=== PATIENT | male | born 1945 | race Caucasian/White ===

== ENCOUNTER 2017-12-31 17:20 | Outpatient (REF) | payer MEDICARE, MEDICAID, SELFPAY ==
--- NOTE | 2017-12-31 16:45 | SKI_PTH ---
PATIENT: Yael Messer LOC: [facility] U#:[id number] AGE/SX: 72/M ROOM: RE12/31/[address]: Harpreet Mcintyre : 1945 BED: DIS: 12/31/2017 SPEC #: [id number] RECD: 01/01/18 12:31 STATUS: ZAHEER REQ #: [id number] PATRICIA: 12/31/17 16:[address]: Harpreet Mcintyre DEPT: Surgical Specimen RECD BY: Yamile Beatty ENTERED: 01/01/18 12:33 SP TYPE: FRANCISCO OT DR: Calixto Huddleston Tissues: 1 - SKIN BIOPSY(SHAVE/PUNCH) Procedures: SKIN LEVEL 4 Comments: [id number]
== END 2017-12-31 17:40 ==
LOC: NCHCN 17:20
PROVIDERS: Visit Provider Family Medicine
DX: L57.0 Actinic keratosis (principal)
CPT/HCPCS: 88305

== ENCOUNTER 2019-01-13 11:03 | Outpatient (REF) | payer MEDICARE, MEDICAID, SELFPAY ==
[2019-01-13 22:00] LABS: Abs Immature Grans 0.02 k/cumm (0.0-0.09); Absolute Basophil Count 0.04 k/cumm (0.0-0.2); Absolute Eosinophil Count 0.17 k/cumm (0.0-0.7); Absolute Lymphocyte Count 2.23 k/cumm (1.2-3.4); Absolute Monocyte Count 0.99 k/cumm (0.11-0.7); Absolute Neutrophil Count 3.74 k/cumm (1.2-6.7); Basophils % 0.6; Eosinophils % 2.4; HCT 41.5 % (40.0-50.0); HGB 14.2 g/dL (13.5-17.5); Immature Grans % 0.3; Mean Corp. HGB Concentration 34.2 g/dL (32.0-36.0); Mean Corpuscular Hemoglobin 30.3 pg (27.0-33.0); Mean Corpuscular Volume 88.5 fL (80-95); Mean Platelet Volume 10.2 fL (8.0-11.0); Monocytes % 13.8; Neutrophils % 51.9; Platelet Count 540 x1000/uL (130-400); RBC 4.69 m/cumm (4.50-6.00); White Blood Cell Count 7.19 k/cumm (4.4-10.8)
[2019-01-13 22:07] LABS: Anion Gap 10.5 mmol/L (3-11); BUN 14 mg/dL (7-18); CO2 25.5 mmol/L (21.0-32.0); CREATININE 0.93 mg/dL (0.70-1.30); Calcium 9.2 mg/dL (8.5-10.1); Calculated LDL 143 mg/dL; Chloride 105 mmol/L (98-107); Cholesterol 202 mg/dL (50-200); Glucose 103 mg/dL (70-100); HDL Cholesterol 33 mg/dL (40-60); Potassium 4.2 mmol/L (3.5-5.1); Sodium 141 mmol/L (136-145); Triglyceride 130 mg/dL (30-150)
[2019-01-15 12:17] LABS: PSA, Screening 3.6 ng/ml (0-6.5)
== END 2019-01-13 11:23 ==
LOC: NCHCN 11:03
PROVIDERS: PCP Family Medicine; Visit Provider Family Medicine
DX: E78.5 Hyperlipidemia, unspecified (principal); R06.2 Wheezing; F17.290 Nicotine dependence, other tobacco product, uncomplicated; Z12.5 Encounter for screening for malignant neoplasm of prostate
CPT/HCPCS: 80048; 80061; 84153; 85025

== ENCOUNTER 2021-01-24 14:51 | Outpatient (REF) | payer MEDICARE, MEDICAID, SELFPAY ==
[2021-01-24 20:40] LABS: Abs Immature Grans 0.02 10^3/uL (0.0-0.06); Absolute Basophil Count 0.04 10^3/uL (0.0-0.2); Absolute Eosinophil Count 0.06 10^3/uL (0.0-0.7); Absolute Lymphocyte Count 1.69 10^3/uL (1.2-3.4); Absolute Monocyte Count 0.92 10^3/uL (0.1-0.8); Absolute Neutrophil Count 5.92 10^3/uL (1.2-6.7); Basophils % 0.5; Eosinophils % 0.7; HCT 44.8 % (40.0-50.0); HGB 15.5 g/dL (13.5-17.5); Immature Grans % 0.2; Lymphocytes % 19.5; MCH 30.6 pg (27.0-33.0); MCHC 34.6 % (32.0-36.0); MCV 88.5 fL (80-95); MPV 10.5 fL (8.0-11.0); Monocytes % 10.6; Neutrophils % 68.5; Nucleated RBC 0 %; Platelet Count 406 10^3/uL (130-400); RBC 5.06 10^6/uL (4.36-5.78); RDW 11.9 % (11.8-14.1); RDW-SD 38.8 fL; WBC 8.65 10^3/uL (4.4-10.8)
[2021-01-24 21:33] LABS: ALT 23 U/L (16-63); AST 16 U/L (15-37); Alkaline Phosphatase 81 U/L (46-116); Anion Gap 8.5 mmol/L (3-11); BUN 12 mg/dL (7-18); Bilirubin, Total 0.5 mg/dL (0.2-1.0); CO2 28.5 mmol/L (21.0-32.0); Calculated LDL 105 mg/dL (<100); Chloride 104 mmol/L (98-107); Cholesterol 176 mg/dL (<200); Glucose 87 mg/dL (74-106); HDL Cholesterol 38 mg/dL (40-60); Potassium 4.5 mmol/L (3.5-5.1); Sodium 141 mmol/L (136-145); TSH (W/Ref FT4) 2.81 uIU/mL (0.36-3.74); Total Protein 7.3 g/dL (6.4-8.2); Triglyceride 165 mg/dL (<150); Vitamin B12 191 pg/mL (193-986)
[2021-01-24 22:18] LABS: Lipase 162 U/L (73-393)
[2021-01-25 18:08] LABS: Folate >24.0 ng/mL (See Note)
[2021-01-26 09:56] LABS: Hepatitis C Ab w Rflx HCV PCR Negative (Negative)
== END 2021-01-24 14:52 | disposition home or self-care (01) ==
LOC: NCHCN 14:51
PROVIDERS: PCP Family Medicine; Visit Provider Nurse Practitioner Family
DX: E53.8 Deficiency of other specified B group vitamins; Z11.59 Encounter for screening for other viral diseases; R63.4 Abnormal weight loss; B19.20 Unspecified viral hepatitis C without hepatic coma; D47.3 Essential (hemorrhagic) thrombocythemia; R63.0 Anorexia
CPT/HCPCS: 80053; 80061; 83690; 86803; 82607; 82746; 84443; 85025

== ENCOUNTER 2021-03-03 15:24 | Outpatient (REF) | payer MEDICARE, MEDICAID, SELFPAY ==
[2021-03-03 20:46] LABS: HCT 42.2 % (40.0-50.0); HGB 14.6 g/dL (13.5-17.5); MCH 30.5 pg (27.0-33.0); MCHC 34.6 % (32.0-36.0); MCV 88.1 fL (80-95); MPV 10.9 fL (8.0-11.0); Platelet Count 387 10^3/uL (130-400); RBC 4.79 10^6/uL (4.36-5.78); RDW 11.9 % (11.8-14.1); RDW-SD 38.1 fL; WBC 7.45 10^3/uL (4.4-10.8)
[2021-03-03 21:14] LABS: Anion Gap 6.7 mmol/L (3-11); BUN 11 mg/dL (7-18); CO2 29.3 mmol/L (21.0-32.0); Calcium 9.9 mg/dL (8.5-10.1); Chloride 97 mmol/L (98-107); Folate 18.6 ng/mL (8.6-20.0); Glucose 119 mg/dL (74-106); Sodium 133 mmol/L (136-145); Vitamin B12 388 pg/mL (193-986)
== END 2021-03-03 15:25 | disposition home or self-care (01) ==
LOC: NCHCN 15:24
PROVIDERS: PCP Family Medicine; Visit Provider Nurse Practitioner Family
DX: R25.1 Tremor, unspecified (principal); E53.8 Deficiency of other specified B group vitamins
CPT/HCPCS: 80048; 85027; 82607; 82746

== ENCOUNTER 2021-11-08 15:22 | Outpatient (REF) | payer MEDICARE, SELFPAY ==
[2021-11-08 21:54] LABS: Calcium 9.1 mg/dL (8.5-10.1); PHOSPHORUS 3.5 mg/dL (2.6-4.7)
[2021-11-09 05:13] LABS: Vitamin D 25 Total 18.8 ng/mL (30-100)
[2021-11-09 23:24] LABS: Parathyroid Hormone,Intact 79 pg/mL (19-88)
== END 2021-11-08 15:23 | disposition home or self-care (01) ==
LOC: NCHCN 15:22
PROVIDERS: PCP Family Medicine; Visit Provider Nurse Practitioner Family
DX: M54.50 Low back pain, unspecified (principal); C25.9 Malignant neoplasm of pancreas, unspecified
CPT/HCPCS: 82306; 82310; 83970; 84100